=== PATIENT | female | born 1950 | race Caucasian/White ===

== ENCOUNTER 2020-07-07 13:39 | Emergency (ER) | payer MEDICARE, OTHER ==
[~2020-07-07] VITALS: Ht 167.4 cm; Wt 97.9 kg
[2020-07-07] MEDS ORDERED: NS IV 1000 ML 1,000 ML IV SCH (14:15)
--- NOTE | 2020-07-07 14:15 | ED Abdominal Pain ---
General Chief Complaint: - Urinary Stated Complaint: GROIN PAIN Nursing Triage Note: Patient reports pain in her right groin for 1 month. She reports it mainly hurts when she is swinging her leg to get in her vehicle and when she is walking. She reports the pain is absent when she is sitting still. Sepsis Screen: No Definite Risk History of Present Illness Date Seen by Provider: Jul 07, 2020 Time Seen by Provider: 13:50 Initial Comments This overweight 70 y/o female nonsmoker from [facility] is visiting in [facility] and presents to our ER today w/ report of localized pain in right groin since yesterday and thinks it might be related to previous heart cath years ago (no CAD or stents). She states that 3-4 months ago she had pain in right anterior thigh on movement and went to PCP and was told it was likely due to her statin (no tests done) and med changed and pain more or less improved but hurts w/ leg movement only. Yesterday the pain location changed and intensified to the right groin. It still only hurts w/ movement. She denies vaginal bleeding or DC, denies urinary sx, and denies change in bowel or bladder function (chronic stress incontinence and urinary leakage that was improved but not eliminated by bladder suspension surgery in past.. 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 No back pain or fever or systemic sx and no hx of fall or trauma to area. Timing/Duration: Changing Over Time, Getting Worse Severity/Quality: Severe, Sharp, Stabbing Location: Other (right thigh changing to right groin) Radiation: Other (initially radiated down thigh but now localized to groin) Activities at Onset: Other (doesn't recall) Modifying Factors: Improves With Movement (intense localize pain w/ movement), Improves With Resting (no pain at rest) Associated Symptoms: Denies Symptoms Allergies and Home Medications Allergies Coded Allergies: Penicillins (Verified Allergy, Unknown, swellig of mouth, lips, and throat , 07/07/20) Sulfa (Sulfonamide Antibiotics) (Verified Allergy, Unknown, rash and hives, 07/07/20) atorvastatin (Verified Allergy, Unknown, extreme leg heaviness, 07/07/20) linaclotide (Verified Allergy, Unknown, rash and hives, 07/07/20) meperidine (Verified Allergy, Unknown, red streaks up arm at injection site, 07/07/20) niacin (Verified Allergy, Unknown, hot flahses, 07/07/20) suture (Verified Allergy, Unknown, cat gut sutures caused inflammation , 07/07/20) Patient Home Medication List Home Medication List Reviewed: Yes Review of Systems Review of Systems Constitutional: no symptoms reported Respiratory: SOA With Exertion (chronic and unchanged) Cardiovascular: No Symptoms Reported Genitourinary: No Symptoms Reported Musculoskeletal: No back pain; muscle pain Skin: no symptoms reported Hematologic/Lymphatic: No Symptoms Reported Past [id number]-Krnsxn Hx Patient Social History Recent Infectious Disease Expo: No Recent Hopitalizations: No Seasonal Allergies Seasonal Allergies: No Past Medical History Surgeries: Yes Appendectomy, Bladder Surgery, Cardiac, Gallbladder, Hysterectomy Respiratory: No Cardiac: Yes High Cholesterol, Hypertension Neurological: No Genitourinary: No Gastrointestinal: No Musculoskeletal: Yes Arthritis Endocrine: No HEENT: No Cancer: No Psychosocial: No Integumentary: No Physical Exam Vital Signs Vital Signs - First Documented 07/07/20 13:44 Temp 37.3 Pulse 73 Resp 18 B/P (MAP) 135/84 (101) Pulse Ox 96 O2 Delivery Room Air Capillary Refill : Less Than 3 Seconds Height/Weight/BMI Height: '" Weight: lbs. oz. kg; 34.00 BMI Method: General Appearance: WD/WN, no apparent distress Neck: supple Respiratory: lungs clear Cardiovascular: normal peripheral pulses, regular rate, rhythm Gastrointestinal: non tender, soft, no pulsatile mass Extremities: normal range of motion, no pedal edema, no calf tenderness, normal capillary refill, other (point tender @ origin of adductor muscles right thigh) Back: normal inspection, no CVA tenderness, no vertebral tenderness Skin: normal color, warm/dry; No ecchymosis, No jaundice, No mottled, No pallor Lymphatic: no adenopathy; No inguinal node tender (R) Progress/Results/Core Measures Results/Orders Lab Results Laboratory Tests Test 07/07/20 14:10 Range/Units White Blood Count 7.3 4.3-11.0 10^3/uL Red Blood Count 4.60 4.35-5.85 10^6/uL Hemoglobin 12.8 11.5-16.0 G/DL Hematocrit 40 35-52 % Mean Corpuscular Volume 86 80-99 FL Mean Corpuscular Hemoglobin 28 25-34 PG Mean Corpuscular Hemoglobin Concent 32 32-36 G/DL Red Cell Distribution Width 13.4 10.0-14.5 % Platelet Count 343 130-400 10^3/uL Mean Platelet Volume 10.2 7.4-10.4 FL Immature Granulocyte % (Auto) 0 % Neutrophils (%) (Auto) 67 42-75 % Lymphocytes (%) (Auto) 23 12-44 % Monocytes (%) (Auto) 7 0-12 % Eosinophils (%) (Auto) 3 0-10 % Basophils (%) (Auto) 1 0-10 % Neutrophils # (Auto) 4.9 1.8-7.8 X 10^3 Lymphocytes # (Auto) 1.7 1.0-4.0 X 10^3 Monocytes # (Auto) 0.5 0.0-1.0 X 10^3 Eosinophils # (Auto) 0.2 0.0-0.3 10^3/uL Basophils # (Auto) 0.1 0.0-0.1 10^3/uL Immature Granulocyte # (Auto) 0.0 0.0-0.1 10^3/uL Urine Color YELLOW Urine Clarity CLEAR Urine pH 5.5 5-9 Urine Specific [place] >=1.030 1.016-1.022 Urine Protein NEGATIVE NEGATIVE Urine Glucose (UA) NEGATIVE NEGATIVE Urine Ketones TRACE H NEGATIVE Urine Nitrite NEGATIVE NEGATIVE Urine Bilirubin 1+ H NEGATIVE Urine Urobilinogen 0.2 < = 1.0 MG/DL Urine Leukocyte Esterase NEGATIVE NEGATIVE Urine RBC (Auto) NEGATIVE NEGATIVE Urine RBC NONE /HPF Urine WBC 5-10 H /HPF Urine Squamous Epithelial Cells 10-25 H /HPF Urine Crystals NONE /LPF Urine Bacteria FEW H /HPF Urine Casts NONE /LPF Urine Mucus LARGE H /LPF Urine Culture Indicated YES Sodium Level 138 135-145 MMOL/L Potassium Level 4.3 3.6-5.0 MMOL/L Chloride Level 108 H 98-107 MMOL/L Carbon Dioxide Level 20 L 21-32 MMOL/L Anion Gap 10 5-14 MMOL/L Blood Urea Nitrogen 24 H 7-18 MG/DL Creatinine 0.99 0.60-1.30 MG/DL Estimat Glomerular Filtration Rate 56 BUN/Creatinine Ratio 24 Glucose Level 100 70-105 MG/DL Calcium Level 9.4 8.5-10.1 MG/DL Corrected Calcium 9.2 8.5-10.1 MG/DL Total Bilirubin 0.5 0.1-1.0 MG/DL Aspartate Amino Transf (AST/SGOT) 22 5-34 U/L Alanine Aminotransferase (ALT/SGPT) 11 0-55 U/L Alkaline Phosphatase 130 40-136 U/L Total Protein 7.2 6.4-8.2 GM/DL Albumin 4.3 3.2-4.5 GM/DL My Orders Orders - ALE DAVIS MD Comprehensive Metabolic Panel (07/07/20 14:05) Ua Culture If Indicated (07/07/20 14:05) Ed Iv/Invasive Line Start (07/07/20 14:05) Cbc With Automated Diff (07/07/20 14:05) Ct Abdomen/Pelvis W (07/07/20 14:05) Ns Iv 1000 Ml (Sodium Chloride 0.9%) (07/07/20 14:15) Urine Culture (07/07/20 14:10) Iohexol Injection (Omnipaque 350 Mg/Ml 1 (07/07/20 15:00) Received Contrast (Hold Metformin- Contr (07/07/20 15:00) Sodium Chloride Flush (Catheter Flush Sy (07/07/20 15:00) Ns (Ivpb) (Sodium Chloride 0.9% Ivpb Bag (07/07/20 15:00) Medications Given in ED Current Medications Medications Dose Ordered Sig/Vincenzo Route Start Time Stop Time Status Last Admin Dose Admin Iohexol 100 ml ONCE ONCE IV 07/07/20 15:00 07/07/20 15:01 DC 07/07/20 15:24 100 ML Sodium Chloride 10 ml NEEDED PRN IV 07/07/20 15:00 07/07/20 15:24 10 ML Sodium Chloride 100 ml ONCE ONCE IV 07/07/20 15:00 07/07/20 15:01 DC 07/07/20 15:24 100 ML Vital Signs/I&O 07/07/20 13:44 Temp 37.3 Pulse 73 Resp 18 B/P (MAP) 135/84 (101) Pulse Ox 96 O2 Delivery Room Air Blood Pressure Mean: 101 Diagnostic Imaging Diagonstic Imaging: CT Plain Films/CT/US/NM/MRI: abdomen, pelvis Reviewed: Reviewed by Me (and discussed w/ patient after formal report) CT Results/Progress Notes MPRESSION: 1. No findings to explain the presenting complaint of right groin pain. 2. Fatty umbilical hernia, noninflamed. 3. Simple hepatic cysts. Prior surgical changes without complicating feature. Departure Impression Primary Impression: Right groin pain Disposition: 01 HOME, SELF-CARE Condition: Stable Departure-Patient Inst. Referrals: NO,LOCAL PHYSICIAN (PCP/Family) Primary Care Physician Patient Instructions: Acute Pain, Adult (DC) Add. Discharge Instructions: As we discussed, the CT does not demonstrate a clearly identified cause for the pain but clinical exam shows it to be localized where the "adductor muscles" attach to the pelvic bone. There are 2 cysts in your liver and some non-inflamed diverticulosis of your colon. No fracture, abscess, hematoma is seen. There are degenerative changes in the hip joint. Please limit activity to that which is both non-dangerous and non-painful. Please schedule a follow up with your doctor back home as soon as possible to consider further tests, physical therapy, or interventions not available in the ER. Tylenol and moist heat are reasonable interventions you can do at home until then. All discharge instructions reviewed with patient and/or family. Voiced understanding. ALE DAVIS MD Jul 07, 2020 14:15
[2020-07-07 14:20] LABS: BASOPHILS # (AUTO) 0.1 10^3/uL (0.0-0.1); BASOPHILS % (AUTO) 1 % (0-10); EOSINOPHILS # (AUTO) 0.2 10^3/uL (0.0-0.3); EOSINOPHILS % (AUTO) 3 % (0-10); HEMATOCRIT 40 % (35-52); HEMOGLOBIN 12.8 G/DL (11.5-16.0); LYMPHOCYTES # (AUTO) 1.7 X 10^3 (1.0-4.0); LYMPHOCYTES % (AUTO) 23 % (12-44); MEAN CORPUSCULAR HEMOGLOBIN 28 PG (25-34); MEAN CORPUSCULAR HGB CONC 32 G/DL (32-36); MEAN CORPUSCULAR VOLUME 86 FL (80-99); MEAN PLATELET VOLUME 10.2 FL (7.4-10.4); MONOCYTES # (AUTO) 0.5 X 10^3 (0.0-1.0); MONOCYTES % (AUTO) 7 % (0-12); NEUTROPHILS # (AUTO) 4.9 X 10^3 (1.8-7.8); NEUTROPHILS % (AUTO) 67 % (42-75); PLATELET COUNT 343 10^3/uL (130-400); WHITE BLOOD COUNT 7.3 10^3/uL (4.3-11.0)
[2020-07-07 14:25] LABS: BILIRUBIN,URINE 1+ (NEGATIVE); CLARITY,URINE CLEAR; COLOR,URINE YELLOW; GLUCOSE, URINE (UA) NEGATIVE (NEGATIVE); KETONES,URINE TRACE (NEGATIVE); LEUKOCYTE ESTERASE ,URINE NEGATIVE (NEGATIVE); NITRITE,URINE NEGATIVE (NEGATIVE); PH,URINE 5.5 (5-9); PROTEIN,URINE NEGATIVE (NEGATIVE)
[2020-07-07 14:26] LABS: BACTERIA,URINE FEW /HPF
[2020-07-07 14:39] LABS: ALBUMIN 4.3 GM/DL (3.2-4.5); BILIRUBIN,TOTAL 0.5 MG/DL (0.1-1.0); CALCIUM 9.4 MG/DL (8.5-10.1); CREATININE SERUM 0.99 MG/DL (0.60-1.30); POTASSIUM 4.3 MMOL/L (3.6-5.0); TOTAL PROTEIN 7.2 GM/DL (6.4-8.2)
[2020-07-07] MEDS ORDERED: IOHEXOL 350 MG/ML 100 ML (OMNIPAQUE 350) VIAL IV ONE (15:00)
[2020-07-07] MEDS ORDERED: CATHETER FLUSH 10 ML SYR IV PRN (15:00)
[2020-07-07] MEDS ORDERED: NS 100 ML (IVPB) BAG IV ONE (15:00)
[2020-07-07] MEDS ORDERED: HOLD METFORMIN - RECEIVED CONTRAST 20 ML VIAL IV SCH (15:00)
--- NOTE | 2020-07-07 16:12 | Diagnostic Imaging Report ---
PROCEDURE: CT abdomen and pelvis with contrast. TECHNIQUE: Multiple contiguous axial images were obtained through the abdomen and pelvis after administration of intravenous contrast. Auto Exposure Controls were utilized during the CT exam to meet ALARA standards for radiation dose reduction. All CT scans use one or more of the following dose optimizing techniques: automated exposure control, MA and/or KvP adjustment based on patient size and exam type or iterative reconstruction. INDICATION: Hysterectomy, appendectomy and cholecystectomy with bladder pin up, now with right groin pain. COMPARISON: None. FINDINGS: Small fatty umbilical hernia. No other abdominal wall defect. No herniation of viscus. There is no ascites, abscess, hematoma or acute fluid collection. There is minimal noninflamed sigmoid diverticulosis. There is previous appendectomy. The urinary tracts are unobstructed, nonfocal and nonacute. There is previous cholecystectomy. There is a cyst in the central and left hepatic lobes. No bile duct dilatation. The pancreas appears unremarkable. No peripancreatic edema. The spleen and adrenals are negative. The kidneys are unobstructed, nonfocal and nonacute. No focal inflammatory process. The bony structures nonacute. IMPRESSION: 1. No findings to explain the presenting complaint of right groin pain. 2. Fatty umbilical hernia, noninflamed. 3. Simple hepatic cysts. Prior surgical changes without complicating feature. Dictated by: Dictated on workstation # [id number]
[2020-07-07 16:50] VITALS: BP 117/87
== END 2020-07-07 16:50 | disposition home or self-care (01) ==
LOC: ER FS 13:42
DX: R10.31 Right lower quadrant pain (principal); K42.9 Umbilical hernia without obstruction or gangrene; K76.89 Other specified diseases of liver; K57.32 Diverticulitis of large intestine without perforation or abscess without bleeding; I10 Essential (primary) hypertension; E78.00 Pure hypercholesterolemia, unspecified; Z85.44 Personal history of malignant neoplasm of other female genital organs; Z88.0 Allergy status to penicillin; Z88.2 Allergy status to sulfonamides; Z88.5 Allergy status to narcotic agent; Z88.8 Allergy status to other drugs, medicaments and biological substances
CPT/HCPCS: 36415; 74177; 80053; 81000; 85025; 87088